=== PATIENT | male | born 1965 | race African-American/Black ===

== ENCOUNTER 2016-07-04 10:23 | Emergency (ER) | payer OTHER ==
[2016-07-04 11:05] LABS: #Basophils 0.1 thou/uL (0.0-0.2); #Eosinphils 0.5 thou/uL (0.0-0.7); #Lymphocytes 1.8 thou/uL (1.20-3.40); #Monocytes 0.4 thou/uL (0.11-0.59); #Neutrophils 3.2 thou/uL (1.40-6.50); %Basophils 2.3 % (0.0-1.0); %Eosinophils 8.2 % (0.0-10.0); %Lymphocytes 29.3 % (21.0-51.0); %Monocytes 7.1 % (0.0-10.0); %Neutrophils 53.2 % (42.0-75.0); Hemoglobin 14.8 g/dL (14.0-18.0); Mean Corpuscular Hemoglobin 32.5 pg (27.0-31.0); Mean Corpuscular Volume 98.5 fl (80.0-94.0); Mean Platelet Volume 6.4 fL (7.4-10.4); Platelet Count 297 thou/uL (130-400); Red Blood Cell (RBC) Count 4.56 mill/uL (4.70-6.10); White Blood Cell (WBC) Count 6.1 thou/uL (4.8-10.8)
[2016-07-04 11:20] LABS: ALT (SGPT) 16 U/L (0-55); AST (SGOT) 15 U/L (5-34); Alkaline Phosphatase 78 U/L (40-150); Anion Gap 16 mmol/L (10-20); BUN (Urea Nitrogen) 18 mg/dL (8.4-25.7); Bilirubin, Total 0.3 mg/dL (0.2-1.2); CKMB 6.2 ng/mL (0-6.6); Calc. Creatinine Clearance 0 mL/min (70-130); Calcium 9.4 mg/dL (7.8-10.44); Carbon Dioxide 18 mmol/L (22-29); Chloride 110 mmol/L (98-107); Estimated GFR-MDRD 60; Globulin 3.5 g/dL (2.4-3.5); Glucose 118 mg/dL (70-105); Potassium 4.3 mmol/L (3.5-5.1); Protein, Total 7.5 g/dL (6.0-8.3); Sodium 140 mmol/L (136-145); Troponin I 0.055 ng/mL (< 0.028)
[2016-07-04 11:33] LABS: Blood, Urine Negative (Negative); Clarity Clear (Clear); Glucose, Urine (Dipstick) Negative (Negative); Leukocyte Negative (Negative); Nitrite Negative (Negative); Protein, Urine (Dipstick) 30 mg/dL (Neg-Trace); Urobilinogen 0.2 mg/dL (0.2-1.0); pH, Urine 5.5 (5.0-9.0)
[2016-07-04 11:38] LABS: Specific Gravity, Urine 1.025 (1.005-1.030)
[2016-07-04 11:39] LABS: PTT 28.2 SEC (22.9-36.1); Prothrombin Time 13.7 SEC (12.0-14.7)
[2016-07-04 11:39] LABS: Bilirubin Negative (Negative); Icto Negative (Negative)
[2016-07-04] MEDS ORDERED: Enoxaparin Sodium 120 MG/0.8 ML SYRINGE SC ONE (11:39)
[2016-07-04 11:41] LABS: Amphetamine Not Detected (NotDetected); Barbiturates Screen Not Detected (NotDetected); Benzodiazepine Screen Not Detected (NotDetected); Cocaine Metabolite Screen Detected (NotDetected); Medtox Control Line Valid? VALID (VALID); Methadone Not Detected (NotDetected); Methamphetamine Not Detected (NotDetected); Opiate Screen Not Detected (NotDetected); Oxycodone Screen Not Detected (NotDetected); Phencyclidine (PCP) Not Detected (NotDetected); THC/Cannabinoid Screen Detected (NotDetected); Tricyclic Screen Not Detected (NotDetected)
[2016-07-04] MEDS ORDERED: Enoxaparin Sodium 30 MG/0.3 ML SYRINGE ONE (11:43)
[2016-07-04 11:58] LABS: Bacteria/HPF Rare-Few HPF (None Seen); RBC/HPF None Seen HPF (0-3); Squamous Epithelial 0-3 HPF (0-3); WBC/HPF None Seen HPF (0-3)
[2016-07-04 11:59] LABS: Crystals/HPF RARE URIC ACID HPF (Negative); Other Microscopic Description NO
--- NOTE | 2016-07-04 12:39 | CT ---
NONCONTRAST HEAD CT CLINICAL HISTORY: Altered mental status. COMPARISON: No prior comparison. FINDINGS: The ventricular system is normal in size. The septum pellucidum and third ventricle are midline. N o evidence of intracranial hemorrhage, mass effect, or midline shift. Minimal mucosal thickening of the paranasal sinuses. IMPRESSION: No acute intracranial hemorrhage or mass effect. POS: [facility]
== END 2016-07-04 13:52 | disposition short-term general hospital (02) ==
LOC: NAV ERS 10:23
DX: R47.1 Dysarthria and anarthria (principal); I48.92 Unspecified atrial flutter; I10 Essential (primary) hypertension; F17.210 Nicotine dependence, cigarettes, uncomplicated
CPT/HCPCS: 70450; 80053; 80306; 81003; 81015; 82553; 84484; 85025; 85610; 85730; 93005; 96372; J1650